=== PATIENT | male | born 1985 ===

== ENCOUNTER 2017-04-11 09:54 | Emergency (ER) | payer OTHER ==
[2017-04-11] MEDS ORDERED: Sodium Chloride 0.9% 1,000 ML IV ONE (11:21)
[2017-04-11] MEDS ORDERED: DiphenhydrAMINE 50 mg/ml Inj IVP STA (11:46)
[2017-04-11] MEDS ORDERED: Sodium Chloride 0.9% 1,000 ML ONE ×2 (11:47)
[2017-04-11 11:52] LABS: BASO % 0.5 % (0.0-2.0); EOS # 0.2 K/uL (0.0-0.7); EOS % 3.3 % (0.0-4.0); HEMOGLOBIN 13.6 g/dL (12.0-18.0); LYMPH # 2.3 K/uL (1.0-4.3); LYMPH % 33.6 % (20.0-40.0); MEAN CELL VOLUME 73.8 fL (80.0-94.0); MEAN CORPUSCULAR HEMOGLOBIN 23.6 pg (27.0-31.0); MEAN PLATELET VOLUME 7.9 fL (7.2-11.7); MONO # 0.6 K/uL (0.0-0.8); MONO % 8.3 % (0.0-10.0); NEUT # 3.7 K/uL (1.8-7.0); NEUT % 54.3 % (50.0-75.0); NRBC % 0.1 % (0.0-2.0); RBC 5.75 Mil/uL (4.40-5.90); RED CELL DISTRIBUTION WIDTH 16.2 % (11.5-14.5); WHITE BLOOD COUNT 6.7 K/uL (4.8-10.8)
--- NOTE | 2017-04-11 11:52 | C.PDOC ---
History Of Present Illness 32-year-old male, presents to the emergency department with multiple complaints. Patient states he has been experiencing diffuse abdominal pain intermittently for the past several months, that is associated with intermittent non-bloody diarrhea. Secondary complaint is itching sensation to rectum for the past three months. Patient also states he is dizzy which is described as the room spinning. Lastly, patient developed a painful rash to right forearm a few days ago. 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 Denies fevers, chills, recent travel , shortness of breath, nausea/vomiting, or any other associated symptoms. No other complaints at this time. Time Seen by Provider: 04/11/17 10:24 Chief Complaint (Nursing): Abnormal Skin Integrity History Per: Patient History/Exam Limitations: no limitations Onset/Duration Of Symptoms: Days Current Symptoms Are (Timing): Still Present Severity: Moderate Past Medical History Reviewed: Historical Data, Nursing Documentation, Vital Signs Vital Signs: Last Vital Signs Temp 98.5 F 04/11/17 13:25 Pulse 77 04/11/17 13:25 Resp 20 04/11/17 13:25 BP 103/62 04/11/17 13:25 Pulse Ox 99 04/11/17 13:36 Family History: States: No Known Family Hx - Social History Hx Alcohol Use: Yes Hx Substance Use: No - Immunization History Hx Tetanus Toxoid Vaccination: No Hx Influenza Vaccination: No Hx Pneumococcal Vaccination: No Review Of Systems Except As Marked, All Systems Reviewed And Found Negative. Constitutional: Negative for: Fever Cardiovascular: Negative for: Chest Pain, Palpitations Gastrointestinal: Positive for: Abdominal Pain, Diarrhea. Negative for: Nausea , Vomiting, Rectal Pain (itching) Skin: Positive for: Rash Neurological: Negative for: Weakness, Numbness Physical Exam - Physical Exam Appears: Non-toxic, No Acute Distress Skin: Warm, Dry, Rash (There is a 2x3cm area of multiple erythematous papules to volar aspect of right arm.) Head: Atraumatic, Normacephalic Eye(s): bilateral: Normal Inspection, PERRL, EOMI Ear(s): Bilateral: Normal Oral Mucosa: Moist Throat: No Erythema, No Exudate Neck: Normal ROM, Supple Chest: Symmetrical, No Tenderness Cardiovascular: Rhythm Regular, No Friction Rub, No Murmur Respiratory: Normal Breath Sounds, No Accessory Muscle Use, No Rales, No Rhonchi , No Wheezing Gastrointestinal/Abdominal: Bowel Sounds (active), Soft, Tenderness (mild, diffuse) Rectal: Heme Negative, Hemorrhoids (non thrombosed hemorrhoid to 6 o clock position. ) Back: Normal Inspection, No CVA Tenderness, No Vertebral Tenderness, No Paraspinal Tenderness Extremity: Normal ROM, Other (first digit on left hand amputated.) Neurological/Psych: Oriented x3, Normal Speech, Normal Cranial Nerves, Normal Motor Gait: Steady ED Course And Treatment - Laboratory Results Result Diagrams: 04/11/17 11:49 04/11/17 11:49 O2 Sat by Pulse Oximetry: 99 (on RA) Pulse Ox Interpretation: Normal Medical Decision Making Medical Decision Making: On re-exam, the patient reports improvement of symptoms. A&O x 3, Ambulatory in the ED with steady gait. Lungs are CTA, heart is RRR, abdomen is soft, non- tender and tolerating PO well. Follow up with the medical doctor/medical clinic within 1-2 days. Return if worsened. Disposition - Disposition Referrals: [facility] [Outside] Disposition: HOME/ ROUTINE Disposition Time: 13:34 Condition: GOOD Additional Instructions: Follow up with the medical doctor within 1-2 days. Return if worsened. 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 - Scribe Statement The provider has reviewed the documentation as recorded by the Scribe (Zion Chance) All medical record entries made by the Scribe were at my direction and personally dictated by me. I have reviewed the chart and agree that the record accurately reflects my personal performance of the history, physical exam, medical decision making, and the department course for this patient. I have also personally directed, reviewed, and agree with the discharge instructions and disposition.
[2017-04-11] MEDS ORDERED: DiphenhydrAMINE 50 mg/ml Inj ONE (11:54)
[2017-04-11 12:00] LABS: ALBUMIN 4.3 g/dL (3.5-5.0)
[2017-04-11 12:02] LABS: GFR AFRICAN-AMERICAN > 60; GFR NON-AFRICAN AMERICAN > 60
[2017-04-11 12:03] LABS: ALB/GLOB RATIO 1.2 (1.0-2.1); ALT/SGPT 37 U/L (21-72); AST/SGOT 25 U/L (17-59); BLOOD UREA NITROGEN 15 mg/dL (9-20); CALCIUM 9.1 mg/dl (8.6-10.4); LIPASE 40 U/L (23-300)
[2017-04-11 13:25] VITALS: BP 103/62; PULSE 77; RESP 20; TEMP 98.5
[2017-04-11 13:30] VITALS: O2SAT 99
[2017-04-11 13:57] LABS: URINE BILIRUBIN NEGATIVE (NEGATIVE); URINE BLOOD NEGATIVE (NEGATIVE); URINE CLARITY Clear (Clear); URINE COLOR Yellow (YELLOW); URINE GLUCOSE (UA) NORMAL (Normal); URINE LEUKOCYTE ESTERASE NEG Leu/uL (Negative); URINE NITRATE NEGATIVE (NEGATIVE); URINE PROTEIN NEGATIVE (NEGATIVE); URINE UROBILINOGEN NORMAL mg/dL (0.2-1.0)
== END 2017-04-11 13:44 | disposition home or self-care (01) ==
LOC: C.ER 09:54
DX: L25.9 Unspecified contact dermatitis, unspecified cause (principal); R42 Dizziness and giddiness; K64.9 Unspecified hemorrhoids
CPT/HCPCS: 80053; 81001; 83690; 85025; 96361; 96374; 96375; 99285; G0328; J1200; J1885; J2765; J7040

== ENCOUNTER 2017-07-25 09:17 | Emergency (ER) | payer OTHER ==
[2017-07-25] MEDS ORDERED: Apap-Butalbital-Caffeine 325-50-40mg Tab PO STA (10:05)
[2017-07-25] MEDS ORDERED: Apap-Butalbital-Caffeine 325-50-40mg Tab ONE (10:10)
--- NOTE | 2017-07-25 11:17 | CT ---
PROCEDURE: CT HEAD WITHOUT CONTRAST. HISTORY: Headaches COMPARISON: None available. TECHNIQUE: Axial computed tomography images were obtained through the head/brain without intravenous contrast. Radiation dose: Total exam DLP = 819.20 mGy-cm. This CT exam was performed using one or more of the following dose reduction techniques: Automated exposure control, adjustment of the mA and/or kV according to patient size, and/or use of iterative reconstruction technique. FINDINGS: HEMORRHAGE: No acute parenchymal, subarachnoid or extra-axial hemorrhage. BRAIN: No mass effect or edema. No atrophy or chronic microvascular ischemic changes. . Mildly prominent ventricles. Additionally, there appears to be mild enlargement of frontal sulci suggesting mild localized bifrontal cortical atrophy. In addition, there are prominent prepontine and premedullary subarachnoid spaces VENTRICLES: No obstructive hydrocephalus. CALVARIUM: There are no acute calvarial fractures. PARANASAL SINUSES: Unremarkable as visualized. No significant inflammatory changes. MASTOID AIR CELLS: Unremarkable as visualized. No inflammatory changes. OTHER FINDINGS: None. IMPRESSION: No acute intracranial hemorrhage. Mildly prominent ventricles and frontal sulci as above. .
--- NOTE | 2017-07-25 11:23 | C.PDOC ---
Time Seen by Provider: 07/25/17 09:53 Chief Complaint (Nursing): Headache History Per: Patient Onset/Duration Of Symptoms: Days (about 3-4 months), Intermittent Episodes, Gradual Current Symptoms Are (Timing): Still Present Severity: Moderate Quality: "Pain" Additional History Per: Prior Records Past Medical History Reviewed: Historical Data, Nursing Documentation, Vital Signs Vital Signs: Last Vital Signs Temp 98.2 F 07/25/17 09:27 Pulse 81 07/25/17 09:27 Resp 20 07/25/17 09:27 BP 138/78 07/25/17 09:27 Pulse Ox 99 07/25/17 09:27 - Medical History PMH: No Chronic Diseases Surgical History: No Surg Hx Family History: States: Unknown Family Hx - Social History Hx Tobacco Use: No Hx Alcohol Use: No Hx Substance Use: No - Immunization History Hx Tetanus Toxoid Vaccination: No Hx Influenza Vaccination: No Hx Pneumococcal Vaccination: No Review Of Systems Except As Marked, All Systems Reviewed And Found Negative. Constitutional: Negative for: Fever, Weakness Cardiovascular: Negative for: Chest Pain Respiratory: Negative for: Shortness of Breath Gastrointestinal: Negative for: Vomiting, Abdominal Pain Musculoskeletal: Negative for: Neck Pain, Back Pain Skin: Negative for: Rash Neurological: Positive for: Headache, Dizziness. Negative for: Weakness, Numbness, Seizures, Altered Mental Status Physical Exam - Physical Exam Appears: Non-toxic, No Acute Distress Skin: Normal Color, Warm, Dry, No Rash Head: Atraumatic, Normacephalic Eye(s): bilateral: Normal Inspection, PERRL, EOMI Ear(s): Bilateral: Normal Neck: Normal ROM, Supple Cardiovascular: Rhythm Regular Respiratory: Normal Breath Sounds, No Accessory Muscle Use Gastrointestinal/Abdominal: Soft, No Tenderness Back: No CVA Tenderness Extremity: Normal ROM Neurological/Psych: Oriented x3, Normal Speech, Normal Cognition, Normal Cranial Nerves, No Cerebellar Signs, Normal Motor, Normal Sensation ED Course And Treatment O2 Sat by Pulse Oximetry: 99 Pulse Ox Interpretation: Normal - CT Scan/US CT head Other Rad Studies (CT/US): Read By Radiologist, Radiology Report Reviewed CT/US Interpretation: IMPRESSION: No acute intracranial hemorrhage. Mildly prominent ventricles and frontal sulci as above. . Reassessment Condition: Improved Disposition Counseled Patient/Family Regarding: Studies Performed, Diagnosis, Need For Followup, Rx Given - Disposition Referrals: [facility] [place] [facility] [Outside] Disposition: HOME/ ROUTINE Disposition Time: 11:23 Condition: STABLE Additional Instructions: Follow up with a Neurologist in the clinic within 1-2 weeks for further evaluation of your prominent cerebral ventricles. Return to the ER if you develop vomiting, weakness, confusion, worsening of symptoms or if you have any other concerns. Prescriptions: Acetaminophen/Butalbital/Caf [Fioricet] 1 tab PO TID PRN #20 tab PRN Reason: Headache Instructions: General Headache (ED) Forms: [facility] (Persian) Print Language: ENGLISH - Clinical Impression Clinical Impression: Chronic headaches
[2017-07-25 11:41] VITALS: BP 122/70; PULSE 67; RESP 18; TEMP 98; O2SAT 98
== END 2017-07-25 11:43 | disposition home or self-care (01) ==
LOC: C.ER 09:17
DX: R51 Headache (principal)